=== PATIENT | female | born 1960 | race Caucasian/White ===

== ENCOUNTER → 2017-07-16 | Outpatient (CLI) | payer OTHER ==
[2015-11-17 03:25] VITALS: BP 164/73
[~2017-07-16] MED LIST: AMLO2.5T PO; CALC500T54 PO; HYDR12.58 PO; MULT-208 PO; OMEG300C PO
--- NOTE | 2017-07-17 09:17 | CARD ---
APPROVED REPORT EXAM: Two-dimensional and M-mode echocardiogram with Doppler and color Doppler. Other Information Quality : Good INDICATION Aortic Valve Disease 2D DIMENSIONS Left Atrium(2D)3.1 (1.6-4.0cm)IVSd1.1 (0.7-1.1cm) Aortic Root(2D)4.2 (2.0-3.7cm)LVDd4.6 (3.9-5.9cm) PWd1.1 (0.7-1.1cm)LVDs3.0 (2.5-4.0cm) FS (%) 36.0 %SV65.1 ml LVEF(%)65.6 (>50%) Aortic Valve AoV Peak Herber.128.5cm/sAoV VTI25.7cm AO Peak GR.6.6mmHgLVOT Peak Herber.111.1cm/s LVOT VTI 26.34cmAO Mean GR.4mmHg AI P 1/2 [id number] Mitral Valve MV E Wuqhpmqn13.0cm/sMV DECEL VULK486ip MV A Dzggrttz42.3cm/sMV [id number] E/A Ratio0.9MVA (PHT)3.09cm2 TDI E/Lateral E'8.3E/Medial E'9.6 Tricuspid Valve RAP [id number] LEFT VENTRICLE The left ventricle is normal size. The left ventricular systolic function is normal and the ejection fraction is within normal range. EF 60% There is normal LV segmental wall motion. RIGHT VENTRICLE The right ventricle is normal size. There is normal right ventricular wall thickness. The right ventr icular systolic function is normal. ATRIA The left atrium size is normal. The right atrium size is normal. The interatrial septum is intact wit h no evidence for an atrial septal defect or patent foramen ovale as noted on 2-D or Doppler imaging. AORTIC VALVE The aortic valve is normal in structure. Doppler and Color Flow revealed mild aortic regurgitation. T here is no significant aortic valvular stenosis. MITRAL VALVE The mitral valve is mildly thickened. There is no evidence of mitral valve prolapse. There is no mitr al valve stenosis. Doppler and Color Flow revealed no mitral valve regurgitation noted. TRICUSPID VALVE The tricuspid valve is normal in structure and function. Doppler and Color Flow revealed no tricuspid valve regurgitation noted. Inadequte tricuspid regurgitation to calculate RVSP. There is no tricuspi d valve prolapse or vegetation. There is no tricuspid valve stenosis. PULMONIC VALVE Doppler and Color Flow revealed no pulmonic valvular regurgitation. There is no pulmonic valvular toni nosis. GREAT VESSELS AO Root appears to be mild to moderately dilated. AO Ascending appears to be mild to moderately dilat ed at 3.7 cm. The IVC is normal in size and collapses >50% with inspiration. PERICARDIAL EFFUSION There is no pleural effusion. There is no evidence of significant pericardial effusion. Critical Notification Critical Value: No <Conclusion> AO Ascending appears to be mild to moderately dilated at 3.7 cm. The left ventricular systolic function is normal and the ejection fraction is within normal range. EF 60%
== END | disposition home or self-care (01) ==
LOC: ECHO 13:02
PROVIDERS: ATTEND Internal Medicine Cardiovascular Disease
DX: I35.8 Other nonrheumatic aortic valve disorders (principal); R06.09 Other forms of dyspnea
CPT/HCPCS: 93306

== ENCOUNTER 2017-08-03 06:38 | Outpatient (CLI) | payer OTHER ==
[2017-08-03] MEDS ORDERED: LIDOCAINE 2% 20 ML VIAL. (07:07)
[2017-08-03] MEDS ORDERED: fentaNYL PF VIAL 100 MCG/2 ML VIAL (07:14)
[2017-08-03] MEDS ORDERED: HEPARIN for IV BOLUS 10,000 UNIT/10 ML VIAL. (07:15)
[2017-08-03] MEDS ORDERED: VERAPAMIL 5 MG/2 ML VIAL. (07:15)
[2017-08-03] MEDS ORDERED: NITROGLYCERIN 200 MCG/2 ML SYRINGE FOR CATH/VASC LAB. (07:15)
[2017-08-03] MEDS ORDERED: MIDAZOLAM HCL/PF 5 MG/5 ML VIAL. (07:15)
[2017-08-03 07:22] LABS: HEMATOCRIT 42.4 % (36.0-47.0); HEMOGLOBIN 14.4 g/dL (12.0-15.5); MEAN CORPUSCULAR HEMOGLOBIN 30 pg (25-35); MEAN CORPUSCULAR HGB CONC 34 g/dL (31-37); MEAN CORPUSCULAR VOLUME 87 fL (79-100); PLATELET COUNT 194 x10^3/uL (140-400); RED BLOOD COUNT 4.87 x10^6/uL (3.50-5.40); RED CELL DISTRIBUTION WIDTH 13.2 % (11.5-14.5); WHITE BLOOD COUNT 4.8 x10^3/uL (4.0-11.0)
[2017-08-03 07:32] LABS: ANION GAP 10 (6-14); BLOOD UREA NITROGEN 13 mg/dL (7-20); CALCIUM 8.6 mg/dL (8.5-10.1); CARBON DIOXIDE 28 mmol/L (21-32); CHLORIDE 107 mmol/L (98-107); CREATININE 0.8 mg/dL (0.6-1.0); GFR 73.4; GLUCOSE 117 mg/dL (70-99); POTASSIUM 3.2 mmol/L (3.5-5.1); SODIUM 145 mmol/L (136-145)
[2017-08-03] MEDS ORDERED: IOHEXOL 300 MG/ML 100ML VIAL. (07:35)
[2017-08-03 07:43] LABS: PROTHROMBIN TIME PATIENT 12.8 SEC (11.7-14.0)
[2017-08-03] MEDS: MIDAZOLAM HCL/PF 5 MG/5 ML VIAL. IV (08:49)
[2017-08-03] MEDS: fentaNYL PF VIAL 100 MCG/2 ML VIAL IV (08:49)
[2017-08-03] MEDS: HEPARIN for IV BOLUS 10,000 UNIT/10 ML VIAL. IART (08:49)
[2017-08-03] MEDS: IOHEXOL 300 MG/ML 100ML VIAL. IART (08:50)
[2017-08-03] MEDS: NITROGLYCERIN 200 MCG/2 ML SYRINGE FOR CATH/VASC LAB. IART (08:50)
[2017-08-03] MEDS: LIDOCAINE 2% 20 ML VIAL. IJ (08:50)
[2017-08-03] MEDS: VERAPAMIL 5 MG/2 ML VIAL. IART (08:50)
[2017-08-03] MEDS: IV 1/2 NORMAL SALINE 1,000 ML IV (08:51)
[2017-08-03] MEDS ORDERED: IV 1/2 NORMAL SALINE 1,000 ML IV (08:53)
[2017-08-03] MEDS ORDERED: POTASSIUM CHLORIDE 20 MEQ TABLET.ER. PO ×2 (09:00→09:14)
[2017-08-03] MEDS: POTASSIUM CHLORIDE 20 MEQ TABLET.ER. PO (09:00)
== END 2017-08-03 12:25 | disposition home or self-care (01) ==
LOC: CCL 06:38
DX: I25.10 Atherosclerotic heart disease of native coronary artery without angina pectoris (principal); I10 Essential (primary) hypertension; F17.200 Nicotine dependence, unspecified, uncomplicated; Z88.1 Allergy status to other antibiotic agents
CPT/HCPCS: 36415; 80048; 85027; 85610; 93458; 99152; 99153; C1769; C1892; J1644; J2250; J3010; J3490; Q9967